=== PATIENT | male | born 1980 | race African-American/Black ===

== ENCOUNTER 2017-02-20 09:11 | Outpatient (CLI) | payer OTHER ==
--- NOTE | 2017-02-20 16:47 | DIAGNOSTIC IMAGING REPORT ---
PROCEDURE: MR LOWER EXT JOINT WO CONT-RT INDICATION: RT KNEE PAIN TECHNIQUE: PD axial, T1 and PD fat sat coronal, PD and PD fat sat sagittal, and sagittal oblique STIR sequence through the ACL. COMPARISON: None. FINDINGS: Menisci: Slight medial subluxation of the body of the medial meniscus with trace intrinsic intermediate signal but no meniscal tear. Ligaments: Anterior and posterior cruciate ligaments are intact. There is fragmentation of the deep fibers of the medial collateral ligament but without overlying edema. Superficial fibers are intact. Lateral collateral ligament complex is intact. Mild edema at the origin of the popliteus tendon. Posterolateral corner structures otherwise normal. Extensor mechanism: Mild lateral subluxation of the patella. There is heterogeneous increased signal and partial thickness tearing of the deep fibers of the distal quadriceps tendon and slight laxity of the superficial fibers. Medial retinacular fibers as the insert on the patella are attenuated and there is subjacent intermediate signal fluid suggestive of hemorrhage. The patellar tendon and lateral retinacular fibers are intact with normal signal. Osseous structures and articular surfaces: Moderate cartilage irregularity involving the lateral facet of the patella. Mild diffuse cartilage thinning in the medial and lateral compartment without focal chondral defect. Mild sclerosis over the medial tibial plateau. Slight marginal spur formation. Marrow signal is normal. Fluid, soft tissues, and joint space: Trace anterior subcutaneous edema over the patella. There is no significant joint effusion. A physiologic amount of joint fluid is present. There is a tiny ganglion cyst along the medial aspect of the posterior intercondylar notch. No bursal fluid collection. Tendons and muscles are otherwise normal in bulk and signal. Neurovascular bundles are normal. IMPRESSION: 1. Tendinopathy and partial tearing of distal quadriceps tendon as it inserts on the patella. 2. Partial tearing of the medial retinacular fibers of the insert on the patella with adjacent small hemorrhage. 3. Mild lateral patellar subluxation. 4. Cartilage irregularity along the lateral facet of the patella may be aggravated by the current injury. 5. Minor degeneration involving the body of the medial meniscus.
== END 2017-02-20 23:00 ==
LOC: MRI SRH 09:11
DX: S83.011A Lateral subluxation of right patella, initial encounter (principal); M70.51 Other bursitis of knee, right knee; S86.811A Strain of other muscle(s) and tendon(s) at lower leg level, right leg, initial encounter